=== PATIENT | male | born 1955 | race Caucasian/White ===

== ENCOUNTER 2023-10-20 01:48 | Emergency (ER) | payer MEDICARE ==
[~2023-10-20] VITALS: Ht 188 cm; Wt 100.0 kg
[2023-10-20 01:54] VITALS: BP 143/80; PULSE 82; RESP 18; TEMP 98.2; O2SAT 98
[2023-10-20] MEDS ORDERED: ACET-2708 MT (03:02)
== END 2023-10-20 03:40 | disposition home or self-care (01) ==
LOC: ER 01:48
DX: S83.92XA Sprain of unspecified site of left knee, initial encounter (principal); Z98.890 Other specified postprocedural states; Z00.00 Encounter for general adult medical examination without abnormal findings; X58.XXXA Exposure to other specified factors, initial encounter; Y93.01 Activity, walking, marching and hiking; Y92.89 Other specified places as the place of occurrence of the external cause; Y99.8 Other external cause status
CPT/HCPCS: 99284; 93971; 73560; L1830